=== PATIENT | female | born 1975 | race Caucasian/White ===

== ENCOUNTER 2016-05-23 11:27 | Emergency (ER) | payer OTHER ==
[~2016-05-23 11:27] MED LIST: ACETAMINOPHEN; BACTRIM DS TABL1 TA1 PO; CIPRO PO; CORTISPORIN-TC10 M1 OT; DIFLUCAN PO; FLAGYL PO; FLEXERIL10 M1 PO; HYDROCORTISONE30 G2 EXT; IBUPROFEN800 MG PO; KEFLEX500 M1 PO; KETOPROFEN PO; LOTRIMIN 1% CR30 GM EXT; MED FOR ACID REFLUX; METFORMIN HCL500 M1; METFORMIN HCL500 M1 PO; NAPROSYN500 MG PO; NAPROXEN PO; NEOMYCIN-POLYMY10 M1 AS; NO MEDICATIONS; OMEPRAZOLE10 M1 PO; PRILOSEC; PRILOSEC20 M1 PO; PROTONIX PO; ROBAXIN 750750 M1 PO; TRAZODONE PO; VOLTAREN75 MG PO; ZOFRANODT PO; ZOLOFT PO; [UNRECOGNIZED DRUG - OTHER] PO; [UNRECOGNIZED DRUG - REMARK]
== END 2016-05-23 11:58 | disposition home or self-care (01) ==
LOC: SED 11:27
DX: R21 Rash and other nonspecific skin eruption (principal); K21.9 Gastro-esophageal reflux disease without esophagitis; F32.9 Major depressive disorder, single episode, unspecified; Z88.1 Allergy status to other antibiotic agents
CPT/HCPCS: 96372; 99283; J1100